=== PATIENT | male | born 1930 | race Caucasian/White ===

== ENCOUNTER 2017-05-11 09:40 | Outpatient (CLI) | payer MEDICARE ==
--- NOTE | 2017-05-11 10:35 | RAD ---
PA AND LATERAL VIEWS CHEST: HISTORY: Pneumonia. FINDINGS: The heart size is normal. The heart size is normal. The aorta is tortuous. There are changes of CO PD. There are mild patchy infiltrates in the right upper and mid lung zones. In the absence of prev ious comparison studies, it cannot be said with certain if this is due to an acute process such as pn eumonia or chronic changes. POS: [facility]
== END 2017-05-11 09:41 | disposition home or self-care (01) ==
LOC: MADRAD 09:40
PROVIDERS: ATTEND Obstetrics & Gynecology
DX: J18.9 Pneumonia, unspecified organism (principal)
CPT/HCPCS: 71020